=== PATIENT | male | born 1995 | race Caucasian/White ===

== ENCOUNTER 2018-03-27 08:29 | Emergency (ER) | payer SELFPAY ==
[2018-03-27 08:29] VITALS: BP 151/100; PULSE 104; RESP 18; TEMP 36.5; O2SAT 100
--- NOTE | 2018-03-27 08:55 | PC.NURSE ---
pt is refusing to answer triage questions, allergies etc. Dr. Costa aware
--- NOTE | 2018-03-27 09:13 | PC.NURSE ---
pt refusing to give blood at this time or urine at this time, social services analyst contacted. provider aware.
--- NOTE | 2018-03-27 10:52 | ED.PSYCH ---
HPI - Psych General Chief Complaint: Psychiatric Symptoms Stated Complaint: MENTAL HEALTH Time Seen by Provider: 03/27/18 08:31 Source: patient Mode of arrival: ambulatory Limitations: no limitations History of Present Illness HPI Narrative: 22-year-old male with psychiatric history presents requesting psychiatric evaluation. He is very tight lipped and has little to say to me or any staff, refusing to speak to anyone that is in a mental health provider. I mentioned the role the emergency department plays in this type of evaluation and asked for blood work and urine but the patient refused. He denies any suicidal or homicidal ideations eventually tells me he is hearing voices, also denying they tell him to hurt himself or others. He is requesting help and able to care for himself. He denies any drug use or recent injuries. It is unclear if he is under the care a psychiatrist mental health provider. When asked if he is supposed to take any psychiatric medicines he merely left and did not clarify MD complaint: other Onset (ago): unknown Duration: other History of same: Yes Associated psychiatric symptoms: auditory hallucinations Associated symptoms: denies other symptoms Treatments prior to arrival: none Review of Systems Review of Systems All systems reviewed & are unremarkable except as noted in HPI and below Constitutional Denies chills, Denies fever(s), Denies lethargy and Denies weakness Eyes Denies change in vision, Denies eye discharge, Denies irritation and Denies loss of vision ENT Ears, Nose, Mouth, and Throat: Denies change in voice, Denies neck pain and Denies sore throat Cardiovascular Denies chest pain, Denies irregular heart rhythm, Denies lightheadedness, Denies palpitations, Denies dyspnea, Denies dyspnea on exertion and Denies orthopnea Respiratory Denies cough, Denies dyspnea, Denies dyspnea on exertion and Denies wheezing Gastrointestinal Gastrointestinal: Denies abdominal pain, Denies change in bowel habits, Denies diarrhea, Denies nausea and Denies vomiting Genitourinary Denies hematuria, Denies flank pain, Denies urinary incontinence and Denies urinary urgency Musculoskeletal Denies neck pain Integumentary/Breasts Denies pruritus, Denies erythema, Denies rash and Denies wounds Neurologic Denies confusion, Denies loss of vision and Denies weakness Psychiatric Denies anxiety, Denies confusion, Denies depression, Denies homicidal ideation and Denies suicidal ideation Comments: merely asking for psychiatric help Endocrine Denies palpitations Hematologic/Lymphatic Denies easy bruising Allergic/Immunologic Denies wheezing Exam Narrative Exam Narrative: 22-year-old male with a flat affect not terribly excited to talk with me Initial Vital Signs Initial Vital Signs: Vital Signs Temperature 97.7 F 03/27/18 08:29 Pulse Rate 104 H 03/27/18 08:29 Respiratory Rate 18 03/27/18 08:29 Blood Pressure 151/100 H 03/27/18 08:29 Pulse Oximetry 100 03/27/18 08:29 Const General: cooperative and well developed Nutritional Appearance: well nourished Orientation: alert, awake, oriented x3 and not confused HENMT Head: normocephalic and atraumatic Ears: external ears normal and TM's normal bilaterally Nose: external nose normal and No nasal discharge Face and sinus: sinuses nontender, face symmetric, no sinus tenderness and No dry mucous membranes Mouth: oral mucosae normal and moist mucous membranes Teeth and gingiva: dentition normal Throat: tonsils normal and uvula midline Eyes General: appearance normal, both eyes and all related structures Eyelids: eyelids normal Conjunctivae: conjunctivae normal Sclera: sclerae normal Pupils: PERRL EOM: EOM intact bilaterally Neck Neck: normal visual inspection, trachea midline, No lymphadenopathy, No midline deformity and No JVD Lymphatic: No lymphedema Chest Chest: normal inspection of the chest Resp Effort & Inspection: normal respiratory effort, able to speak in complete sentences, no respiratory distress and no use of accessory muscles Auscultation: clear to auscultation bilaterally, no rales, no rhonchi and no wheezes Cardio Rate: regular rate Rhythm: regular rhythm Heart Sounds: no click, no gallops, no murmurs and no rubs Pulses: normal peripheral pulses GI Inspection: non-distended Palpation: soft, no hepatosplenomegaly, No guarding, No pulsatile mass and No tender Auscultation: normal bowel sounds Back/Spine/Pelvis Back: No CVA tenderness Cervical Spine: cervical ROM normal and No pain with cervical ROM Thoracic/Lumbar Spine: thoracic and lumbar spine normal to inspection Skin General: no rashes or lesions noted, No jaundice and No petechiae Neuro General: alert, oriented x3, gait normal and no focal motor deficits Speech: speech normal Extrem General: full ROM, no clubbing, cyanosis or edema, no pedal edema and no calf tenderness Psych Appearance: well kempt Mental Status: mental status grossly normal Attitude: cooperative Thought Content: normal and suicidality Judgment: judgment good Course Reevaluation(s) Reevaluation #1: Patient is happy to speak with care management and was much more forthcoming regarding why he is here and what he hopes to gain. Please see her note more details. A care plan is included in this paperwork. To her the patient states that he just needs to get home so he can have a stable existence and eat regularly and sleep appropriately. He states that when he is away from home he does not sleep as well and it tends to make him spiral out of control. He states that he does not take any medications and will not take any medications and can normally control his symptoms with behavioral modification. He is able to contract for safety. He refused any desire to be with seepage or other out Reach teams Vital Signs - 8 hr 03/27/18 08:29 Temperature 97.7 F Pulse Rate 104 H Respiratory Rate 18 Blood Pressure 151/100 H Pulse Oximetry 100 Discharge Plan Departure Patient Disposition: Home Clinical Impression: Insomnia, Chronic paranoid schizophrenia Discharge Date/Time: 03/27/18 12:36 Interventions: ED Discharge Assessment Last Done: 03/27/18 12:34 Instructions: DI for Insomnia Activity Restrictions/Additional Instructions: *You have been diagnosed with [ insomnia with exacerbation of chronic paranoid schizophrenia ] *What to do: *Take your existing medications as directed *Follow up with your primary care provider in 2-3 days, call for an appointment. Let them know you were seen in the Emergency Department and that we ask that you be seen in follow up *Return to ER if you should have any new, worsening or concerning symptoms *do your best to get 8 hours of sleep and eat healthy Referrals: Silas Aranda, [Physician] -
--- NOTE | 2018-03-27 11:37 | PC.NURSE ---
PT EATING BREAKFAST, REFUSES BLOOD DRAW AND URINE AT THIS TIME. PROVIDER AWARE. PT GIVEN WARM BLANKET AND SLEEPING AT THIS TIME.
--- NOTE | 2018-03-27 11:43 | PC.NURSE ---
pt was laying on right side when I went in. Introduce myself, pt said hello to me and rolled on to his back. I asked if I could get some vitals form pt. Pt said no while looking at his hand. Nurse Notified
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
== END 2018-03-27 12:36 | disposition home or self-care (01) ==
PROVIDERS: Emergency Provider Emergency Medicine
DX: F20.0 Paranoid schizophrenia (principal); G47.00 Insomnia, unspecified
CPT/HCPCS: 99283